=== PATIENT | female | born 1990 | race Caucasian/White ===

== ENCOUNTER 2023-01-05 09:13 | Inpatient (IN) | payer BC ==
[~2023-01-05] VITALS: Ht 149.9 cm; Wt 54.9 kg
[2023-01-05] MEDS ORDERED: MORPHINE SULFATE 4 MG/ML CPJ (NOT FOR IM USE) IV STA (09:47)
[2023-01-05] MEDS ORDERED: ONDANSETRON HCL 4MG/2ML INJ IV STA (09:47)
[2023-01-05 10:11] LABS: BASOPHILS % 0.3 % (0.0-2.0); EOSINOPHILS % 0.2 % (0.0-5.0); HEMATOCRIT. 38.1 % (36.0-48.0); HEMOGLOBIN. 12.8 g/dL (12.0-16.0); LYMPHOCYTES % 13.6 % (20.0-50.0); MEAN CORPUSCULAR HEMOGLOBIN 30.3 pg (28.0-32.0); MEAN CORPUSCULAR HGB CONC 33.7 g/dL (31.0-37.0); MEAN CORPUSCULAR VOLUME 89.8 fL (81.0-99.0); MONOCYTES % 8.5 % (2.0-8.0); NEUTROPHILS % 77.4 % (40.0-76.0); PLATELET 338 x1000/uL (130-400); RED BLOOD CELL COUNT 4.24 mill/uL (4.2-5.4); RED CELL DISTRIBUTION WIDTH 14.7 % (11.6-14.6)
[2023-01-05 10:19] LABS: CHLORIDE 103 mEq/L (98-107); INDEX HEMOLYSI 1 (1-3); INDEX ICTERIC 1 (1-4); INDEX LIPEMIC 1 (1-3); POTASSIUM 3.3 mEq/L (3.5-5.1); SODIUM 135 mEq/L (136-145)
[2023-01-05 10:27] LABS: ALANINE AMINOTRANSFERASE 19 IU/L (13-61); ASPARTATE AMINOTRANSFERASE 10 IU/L (15-37); BILIRUBIN TOTAL 1.1 mg/dL (0.1-1.0); CARBON DIOXIDE 26 mEq/L (21-32); CREATININE 0.6 mg/dL (0.6-1.3); GLUCOSE 127 mg/dL (70-105); PROTEIN TOTAL 7.7 g/dL (6.0-8.3); UREA NITROGEN BLOOD 4 mg/dL (7-21)
[2023-01-05] MEDS ORDERED: DIATR MEGLU/DIATRIZOATE SOLN 30ML ONE (10:35)
[2023-01-05 10:46] LABS: HCG SCREEN INDETERMINATE
[2023-01-05 12:18] LABS: CLARITY URINE CLEAR (CLEAR); COLOR URINE YELLOW (YELLOW); GLUCOSE URINE NEGATIVE (NEGATIVE); KETONES URINE NEGATIVE (NEGATIVE); LEUKOCYTE ESTERASE URINE NEGATIVE (NEGATIVE); NITRITE URINE NEGATIVE (NEGATIVE); OCCULT BLOOD URINE TRACE (NEGATIVE); PH URINE 6.5 (4.5-8.0); PROTEIN URINE NEGATIVE (NEGATIVE); SPECIFIC GRAVITY URINE 1.003 (1.005-1.030); UROBILINOGEN URINE 0.2 E.U./dL (0.2-1.0)
[2023-01-05 12:21] LABS: YEAST URINE NONE SEEN
[2023-01-05 12:42] LABS: BACTERIA URINE FEW; RBC URINE 0-2 /hpf (0-2); SQUAMOUS EPITHELIAL CELL URINE RARE /lpf (RARE/1+); WBC URINE NONE SEEN /hpf (0-2)
[2023-01-05] MEDS ORDERED: MORPHINE SULFATE 4 MG/ML CPJ (NOT FOR IM USE) IV ONE ×2 (13:00→15:15)
[2023-01-05] MEDS ORDERED: PIPERACILLIN/TAZOBACTAM 3.375GM/50ML PREMIX IV ONE (15:15)
[2023-01-05] MEDS ORDERED: PIPERACILLIN/TAZ 3.375G PREMIX 50 ML IV SCH (15:30)
[2023-01-05] MEDS ORDERED: ONDANSETRON HCL 4MG/2ML INJ IV PRN (16:30)
[2023-01-05] MEDS ORDERED: HYDROCODONE/ACETAMINOPHEN 5/325MG TABLET PO PRN ×2 (16:30)
[2023-01-05] MEDS ORDERED: NALOXONE HCL 0.4MG/ML VIAL IV PRN (16:30)
[2023-01-05] MEDS ORDERED: DEXT 5%/0.45% NACL KCL 20MEQ/L 1,000 ML IV SCH (17:00)
[2023-01-05] MEDS ORDERED: BUPIVACAINE HCL/PF 0.5% (5MG/ML) 10ML ONE (17:48)
[2023-01-05] MEDS ORDERED: SKIN ADHESIVE 0.7 GM EA TOP ONE (17:48)
[2023-01-05] MEDS ORDERED: FENTANYL CITRATE/PF 50MCG/ML 2ML VIAL ONE ×2 (18:01→18:08)
[2023-01-05] MEDS ORDERED: DEXAMETHASONE 4MG/ML 1ML VIAL ONE (18:01)
[2023-01-05] MEDS ORDERED: MIDAZOLAM HCL 2 MG/2 ML VIAL ONE (18:01)
[2023-01-05] MEDS ORDERED: PROPOFOL 200MG/20ML VIAL IV ONE (18:01)
[2023-01-05] MEDS ORDERED: ROCURONIUM BROMIDE 10MG/ML VIAL 5ML IV ONE (18:01)
[2023-01-05] MEDS ORDERED: ONDANSETRON HCL 4MG/2ML INJ ONE (18:01)
[2023-01-05] MEDS ORDERED: GLYCOPYRROLATE 0.2 MG/ML 2ML VIAL ONE (18:35)
[2023-01-05 22:00] VITALS: BP 96/66; PULSE 81; RESP 18; TEMP 98.9
[2023-01-06] VITALS: BP 96/62; PULSE 68; RESP 17; TEMP 97.2
[2023-01-06] MEDS ORDERED: ONDANSETRON HCL 4MG/2ML INJ IV PRN
[2023-01-06] MEDS ORDERED: DIPHENHYDRAMINE 50MG/ML VIAL IV PRN
[2023-01-06] MEDS ORDERED: ACETAMINOPHEN 325MG TABLET PO PRN ×2
[2023-01-06] MEDS ORDERED: MAGNESIUM/ALUMINUM HYDROXIDE/SIMETHICONE 30ML UDC PO PRN
[2023-01-06] MEDS ORDERED: DEXT 5%/0.45% NACL KCL 20MEQ/L 1,000 ML IV SCH (03:30)
[2023-01-06 04:00] VITALS: BP 98/62; PULSE 87; RESP 17; TEMP 99.9
[2023-01-06 08:00] VITALS: BP 103/63; PULSE 87; RESP 19; TEMP 98.2
[2023-01-06 16:00] VITALS: BP 102/66; PULSE 63; RESP 20; TEMP 98.2
[2023-01-06 16:50] VITALS: BP 97/60; PULSE 91; TEMP 98; O2SAT 99
== END 2023-01-06 17:25 | disposition home or self-care (01) | DRG 343 ==
LOC: ER 09:41 → EDBEDREQ 18:45 → 6EST 21:19
PROVIDERS: ADMIT Surgery; ATTEND Surgery
PROC: 0DTJ4ZZ Resection of Appendix, Percutaneous Endoscopic Approach (ICD-10-PCS; principal; 2023-01-05)
DX: K35.80 Unspecified acute appendicitis (principal)
CPT/HCPCS: 36415; 74177; 80053; 81003; 84702; 84703; 85025; 88304; 99285; J1100; J2250; J2270; J2405; J2543; J2704; J3010; J3490; Q9963